=== PATIENT | female | born 1955 | race Caucasian/White ===

== ENCOUNTER 2025-04-22 06:32 | Inpatient (IN) | payer MEDICARE, OTHER ==
[~2025-04-22] VITALS: Ht 157.5 cm; Wt 61.2 kg
[2025-04-22] MEDS ORDERED: ANESTHESIA TRAY IN PYXIS 1 EA TRAY MC ONE (07:11)
[2025-04-22] MEDS ORDERED: LIDOCAINE 2%-EPI 1:100,000 30 ML VIAL ONE (07:12)
[2025-04-22] MEDS ORDERED: dexaMETHasone SOD PHOSPHATE 2 ML ONE (07:12)
[2025-04-22] MEDS ORDERED: VANCOMYCIN 1 GM VIAL ONE (07:12)
[2025-04-22] MEDS ORDERED: ROCURONIUM BROMIDE 50 MG/5 ML ONE (07:19)
[2025-04-22] MEDS ORDERED: FENTANYL PF 250MCG/5ML AMPUL ONE (07:19)
[2025-04-22 07:39] LABS: INR 1.04 (0.91-1.10)
[2025-04-22] MEDS ORDERED: LABETALOL HCL IV 100MG VIAL ONE (07:55)
[2025-04-22 10:15] VITALS: BP 143/86; TEMP 97.2; O2SAT 100
[2025-04-22] MEDS ORDERED: APIX5TAB PO (11:16)
[2025-04-22] MEDS ORDERED: VALS160T29 PO (11:16)
[2025-04-22] MEDS ORDERED: METO50TA16 PO (11:16)
[2025-04-22] MEDS ORDERED: AMLO-212 PO (11:16)
[2025-04-22] MEDS ORDERED: ONDANSETRON HCL/PF 4 MG/2 ML VIAL IV PRN (11:30)
[2025-04-22] MEDS ORDERED: ACETAMINOPHEN 325 MG TABLET PO PRN (11:30)
[2025-04-22] MEDS ORDERED: HYDROMORPHONE 1 MG/1 ML DISP.SYRIN IV PRN (11:30)
[2025-04-22 16:00] VITALS: BP_SYST 133; BP_SYST 136; BP_DIAS 77; BP_DIAS 81; TEMP 98; TEMP 98.3; O2SAT 98
[2025-04-22] MEDS: IV NS 0.9% 1,000 ML IV PRN (17:01)
[2025-04-22 20:00] VITALS: BP 141/70; TEMP 97.9; O2SAT 99
[2025-04-22] MEDS: VANCOMYCIN 1 GM in IV D5W 250ml IV SCH (20:08)
[2025-04-23] MEDS ORDERED: APIXABAN 5 MG TABLET PO SCH (09:30)
[2025-04-23] MEDS: METOPROLOL TARTRATE 50 MG TABLET PO SCH (09:30)
[2025-04-23] MEDS: AMLODIPINE BESYLATE 5 MG TABLET PO SCH (09:30)
[2025-04-23 09:56] VITALS: BP 117/63
[2025-04-23] MEDS: LOSARTAN POTASSIUM 50 MG TABLET PO SCH (09:56)
== END 2025-04-23 14:38 | disposition home or self-care (01) | DRG 141 ==
LOC: DS 06:32 → MED 10:04
PROVIDERS: ADMIT Nurse Practitioner Acute Care; ATTEND Nurse Practitioner Acute Care
PROC: 0NST04Z Reposition Right Mandible with Internal Fixation Device, Open Approach (ICD-10-PCS; 2025-04-22)
PROC: 0NUV07Z Supplement Left Mandible with Autologous Tissue Substitute, Open Approach (ICD-10-PCS; 2025-04-22)
PROC: 0NUT07Z Supplement Right Mandible with Autologous Tissue Substitute, Open Approach (ICD-10-PCS; 2025-04-22)
PROC: 0N5V0ZZ Destruction of Left Mandible, Open Approach (ICD-10-PCS; 2025-04-22)
PROC: 0N5T0ZZ Destruction of Right Mandible, Open Approach (ICD-10-PCS; 2025-04-22)
PROC: 0NSV04Z Reposition Left Mandible with Internal Fixation Device, Open Approach (ICD-10-PCS; principal; 2025-04-22 07:30)
DX: S02.69XA Fracture of mandible of other specified site, initial encounter for closed fracture (principal); M87.9 Osteonecrosis, unspecified; M27.2 Inflammatory conditions of jaws; I10 Essential (primary) hypertension; I48.91 Unspecified atrial fibrillation; Z79.01 Long term (current) use of anticoagulants; F17.200 Nicotine dependence, unspecified, uncomplicated; Z79.899 Other long term (current) drug therapy; M27.40 Unspecified cyst of jaw; X58.XXXA Exposure to other specified factors, initial encounter; Y92.9 Unspecified place or not applicable
CPT/HCPCS: 36415; 85610-TC; 85730-TC; 88305-TC; 88311-TC; A4223; A4338; C1713; G0378; J0461; J0690; J1100; J2704; J3010; J3373; J3490; J7030; J7060